=== PATIENT | male | born 1950 | race Caucasian/White ===

== ENCOUNTER → 2024-08-04 12:59 | Outpatient (REF) | payer MEDICARE, SELFPAY | LOC: HWEVLT 12:59 | PROVIDERS: ATTENDING PHYSICIAN Radiology Vascular & Interventional Radiology | DX: I83.892 Varicose veins of left lower extremity with other complications (principal) | CPT/HCPCS: 93971 ==

== ENCOUNTER 2024-08-09 16:40 | Emergency (ER) | payer MEDICARE, OTHER, SELFPAY ==
[2024-08-09 16:51] VITALS: BP 133/100
--- NOTE | 2024-08-09 16:52 | ED.GENMED ---
ED Provider Triage
-
Patient seen by provider in Triage?: Seen in Triage
Attestation: A medical screening examination has been initiated by a qualified medical provider. Based on the assessment performed at this time, it has been determined that an emergent medical condition may exist and the patient has been informed
that further medical evaluation and possible additional diagnostic testing may be needed.
HPI: 74-year-old male presenting to the emergency department at request of his [facility] for evaluation after he had a injection into the penis earlier this morning at 11:00 AM for treatment for Peyronie's disease. Patient states that since
the injection he has had a continued erection. Because of the extended amount of time with the erection patient was advised to come to the ER for further evaluation. Patient is endorsing waxing and waning pain. States this was the first time he
had this injection done or saw his urologist. Urology team notified for further recommendations/treatments
GENERAL: Alert , in no apparent distress
EYE: No visual abnormalities.
NECK: Trachea midline
ENT: No visible abnormalities.
LUNGS: No acute respiratory distress
NEUROLOGICAL: Alert and oriented
SKIN: Skin intact. No visible changes.
MUSCULOSKELETAL: Moving extremities normally
PSYCH: Normal and appropriate interaction.
This is a medical evaluation conducted in person to initiate diagnostic evaluation and provide initial therapeutics. Please see further documentation by the treating clinician.
History of Present Illness
General
Chief Complaint: Male Genito-Urinary Symptoms
Source: patient
Time Seen by Provider: 08/09/24 17:03
History of Present Illness
History of Present Illness:
74-year-old male with past medical history of Peyronie's presenting to the emergency department for evaluation after he has had an erection since 11 AM after getting an injection into his penis earlier today by urology at [facility]. Patient states he
is not sure what medication he received, was advised that if he had an erection lasting for longer than 4 hours should come to the emergency department. He did attempt to contact the office but reports he did not hear back from them until he was
already at the emergency room. Patient notes he has been able to urinate since. However was uncomfortable while urinating. No other concerns. Patient reports that this was a first injection he had received for treatment of his Peyronie's.
Past History
Past History
ED Past Medical History: Hypercholesterolemia and Psychiatric
ED Past Surgical History: None
Social History
Tobacco: Non-smoker
Alcohol: None
Drug: None
Personal:
Living: with family
Employment: Employed
Review of Systems
Review of Systems
All Other Systems: ROS reviewed and negative except as documented in HPI and ROS
Phy Exam
Physical Exam
Physical Exam:
GENERAL: Alert , in no apparent distress
EYE: conjunctiva clear
Head: Normocephalic atraumatic
NECK: Supple,
ENT: mmm.
LUNGS: no acute respiratory distress
GENITOURINARY: Priapism noted
NEUROLOGICAL: Alert and oriented
SKIN: Warm and dry, skin intact.
MUSCULOSKELETAL: well perfused.
PSYCH: Normal and appropriate interaction.
Scores
Heart Failure Risk
Heart Failure Risk Score: Not Applicable
Heart Score for Chest Pain Patients
STEMI patient?: Not applicable
Withdrawal Assessment of Alcohol
Withdrawal Assessment Completed?: Not applicable
Course
Orders/Labs/Results
Orders:
Orders
08/09/24 17:04
Phenylephrine [Cristian-Synephrine] 5 mg 0.9% Sodium Chloride 50 ml [Nss] 19.5 ml Syringe [Syringe Non-Pump] 0 ml INTRACAVER ONCE PRN
Vital Signs
Initial and Last Documented VS:
Initial Vital Signs
Pulse Resp BP Pulse Ox
80 18 133/100 97
08/09/24 16:51 08/09/24 16:51 08/09/24 16:51 08/09/24 16:51
Last Documented Vital Signs
Pulse Resp BP Pulse Ox
80 18 133/100 97
08/09/24 16:51 08/09/24 16:51 08/09/24 16:51 08/09/24 16:51
MDM/Problems Addressed
Differential Diagnosis Includes:
Priapism, no concern for urinary retention, no concern for testicular torsion
MDM/Problems Addressed:
74-year-old male presenting to the emergency department for evaluation of priapism. Patient received an unknown medication at 11 AM today by his urologist at [facility] for treatment of his Peyronie's. Notified urology here who will come to the
bedside to evaluate patient. They are requesting we order 500 mcg of phenylephrine to have at the bedside.
*Pulse Oximetry
Patient hypoxic: no
*Critical Care Note
Total Time (30-74mins, 75-104mins- exclusive of procedures): Not Applicable
Patient Management
Discussion with other providers: [employer]
Escalation/DeEscalation of care consider admission/obs:
Urology injected the penis at the bedside with phenylephrine and patient had resolution of erection. He was observed for 30 minutes further and remained without erection. Patient will follow-up with urology in 1 month. Aware of return precautions
to the ER here.
ED Attending Note
-
Portions of this chart may have been created with voice recognition software.� Occasional wrong word or��sound alike� substitutions may have occurred due to the inherent limitations of voice recognition software.
Discharge Plan
Departure
Patient Disposition: Home (Routine Discharge)
Date of Disposition: 08/09/24
Time of Disposition: 17:43
Patient with high blood pressure during this ER visit?: Yes
Discharge Problem:
Priapism
Instructions: Priapism
Prescriptions:
No Action
dextroamphetamine-amphetamine 30 MG tablet
30 mg PO TID
sertraline 50 MG tablet
50 mg PO DAILY
ezetimibe-simvastatin [Vytorin 10-20] 1 EACH tablet
1 ea PO DAILY
Referrals:
Zion Dillon MD [Active] -
Interventions
Interventions:
*Risk Screen - Suicide Last Done: 08/09/24 16:51
*Neglect/Abuse Screening Last Done: 08/09/24 16:51
*ED COVID-19 Vaccine History Last Done: 08/09/24 16:51
*Nursing Disposition Last Done: 08/09/24 18:24
ED-Male Genitourinary Assessment Last Done: 08/09/24 17:22
Discharge Date and Time
Discharge Date/Time: 08/09/24 18:24
Print Language: URDU
== END 2024-08-09 18:24 | disposition home or self-care (01) ==
LOC: EMR 16:40
PROVIDERS: EMERGENCY PHYSICIAN Student in an Organized Health Care Education/Training Program; FAMILY PHYSICIAN Family Medicine
DX: N48.30 Priapism, unspecified (principal); N48.6 Induration penis plastica; R03.0 Elevated blood-pressure reading, without diagnosis of hypertension
CPT/HCPCS: 99283; 54220